=== PATIENT | male | born 1965 | race Hispanic/Latino ===

== ENCOUNTER 2017-08-02 15:18 | Emergency (ER) | payer MEDICAID ==
[2017-08-02 15:25] VITALS: BP 147/87
[2017-08-02] MEDS ORDERED: TORADOL IM ONE (16:37)
[2017-08-02] MEDS ORDERED: PERCOCET 5/325 PO ONE (16:38)
--- NOTE | 2017-08-02 16:43 | Emergency Department Report ---
ED Back Pain/Injury HPI - General Chief Complaint: Back Pain/Injury Stated Complaint: BACK PAIN Time Seen by Provider: 08/02/17 16:37 Source: patient Limitations: No Limitations - History of Present Illness Initial Comments: 52 yo male with DDD presents with severe back pain after lifting/twisting injury 2 days ago. Sudden onset of pain while lifting 90 pound tree stump. He has severe left lower back pain. Worse with movement. No radiation. NO incontinence. no leg weakness. MD Complaint: back pain, back injury -: Sudden, days(s) (2) Similar Symptoms Previously: Yes Place: home Radiation: none Severity: severe Severity scale (0 -10): 10 Quality: sharp, dull Consistency: constant Improves With: none Worsens With: movement Context: while lifting, turning/twisting, bending - Related Data Previous Rx's Medication Instructions Recorded Last Taken Type Cyclobenzaprine [Flexeril] 10 mg PO TID PRN #20 tablet 08/02/17 Unknown Rx Ibuprofen 800 mg PO QID 4 Days #16 tablet 08/02/17 Unknown Rx oxyCODONE /ACETAMINOPHEN [Percocet 1 tab PO Q4HR #20 tab 08/02/17 Unknown Rx 5/325] Allergies Allergy/AdvReac Type Severity Reaction Status Date / Time No Known Allergies Allergy Unverified 08/02/17 15:22 ED Review of Systems ROS: Stated complaint: BACK PAIN Other details as noted in HPI Comment: All other systems reviewed and negative Constitutional: denies: fever, malaise, weakness Respiratory: denies: cough Cardiovascular: denies: chest pain ED Past Medical Hx - Past Medical History Previous Medical History?: Yes Hx Hypertension: Yes Hx CVA: Yes Hx Diabetes: Yes Additional medical history: DJD - Surgical History Past Surgical History?: No - Social History Smoking Status: Current Every Day Smoker Substance Use Type: None - Medications Home Medications: Home Medications Medication Instructions Recorded Confirmed Last Taken Type Cyclobenzaprine [Flexeril] 10 mg PO TID PRN #20 tablet 08/02/17 Unknown Rx Ibuprofen 800 mg PO QID 4 Days #16 tablet 08/02/17 Unknown Rx oxyCODONE /ACETAMINOPHEN [Percocet 1 tab PO Q4HR #20 tab 08/02/17 Unknown Rx 5/325] ED Physical Exam - General Limitations: No Limitations General appearance: alert, in no apparent distress, other (able to move and transfer without assistance) - Head Head exam: Present: atraumatic, normocephalic - Eye Eye exam: Present: normal appearance - ENT ENT exam: Present: normal exam, mucous membranes moist - Neck Neck exam: Present: normal inspection. Absent: tenderness, meningismus - Respiratory Respiratory exam: Present: normal lung sounds bilaterally. Absent: respiratory distress, wheezes, rales, rhonchi, stridor - Cardiovascular Cardiovascular Exam: Present: regular rate, normal rhythm, normal heart sounds. Absent: bradycardia, tachycardia, systolic murmur, diastolic murmur, rubs, gallop - GI/Abdominal GI/Abdominal exam: Present: soft, normal bowel sounds. Absent: distended, tenderness, guarding, rebound - Rectal Rectal exam: Present: deferred - Extremities Exam Extremities exam: Present: normal inspection - Back Exam Back exam: Present: normal inspection, full ROM, muscle spasm (left lower back) . Absent: tenderness, CVA tenderness (R), CVA tenderness (L) - Neurological Exam Neurological exam: Present: alert, oriented X3, normal gait. Absent: motor sensory deficit - Psychiatric Psychiatric exam: Present: normal affect, normal mood - Skin Skin exam: Present: warm, dry, intact, normal color. Absent: rash ED Course Vital Signs 08/02/17 15:22 Temperature 97.5 F L Pulse Rate 96 H Respiratory 18 Rate Blood Pressure 147/87 O2 Sat by Pulse 98 Oximetry ED Medical Decision Making - Medical Decision Making Lower back strain, acute back injury neurologically intact. prescriptions provided Critical care attestation.: If time is entered above; I have spent that time in minutes in the direct care of this critically ill patient, excluding procedure time. ED Disposition Clinical Impression: Lower back injury, Acute back pain, Degenerative disc disease, lumbar Disposition: DC-01 TO HOME OR SELFCARE Is pt being admited?: No Does the pt Need Aspirin: No Condition: Stable Instructions: Acute Low Back Pain (ED) Prescriptions: Cyclobenzaprine [Flexeril] 10 mg PO TID PRN #20 tablet PRN Reason: Muscle Spasm Ibuprofen 800 mg PO QID 4 Days #16 tablet oxyCODONE /ACETAMINOPHEN [Percocet 5/325] 1 tab PO Q4HR #20 tab Referrals: PRIMARY CARE,MD [Primary Care Provider] - 3-5 Days Time of Disposition: 16:46
== END 2017-08-02 17:02 | disposition home or self-care (01) ==
LOC: ED 15:18
DX: S39.82XA Other specified injuries of lower back, initial encounter (principal); M51.36 Other intervertebral disc degeneration, lumbar region; Z86.73 Personal history of transient ischemic attack (TIA), and cerebral infarction without residual deficits; I10 Essential (primary) hypertension; E11.9 Type 2 diabetes mellitus without complications; F17.200 Nicotine dependence, unspecified, uncomplicated; X50.0XXA Overexertion from strenuous movement or load, initial encounter; Y93.89 Activity, other specified; Y92.89 Other specified places as the place of occurrence of the external cause; Y99.8 Other external cause status
CPT/HCPCS: 96372; 99282; J1885

== ENCOUNTER 2017-09-27 11:43 | Emergency (ER) | payer MEDICAID ==
[2017-09-27 12:06] VITALS: BP 155/104
--- NOTE | 2017-09-27 14:17 | Emergency Department Report ---
ED Back Pain/Injury HPI - General Chief Complaint: Back Pain/Injury Stated Complaint: BACK PAIN Time Seen by Provider: 09/27/17 14:17 Source: patient Limitations: No Limitations - History of Present Illness Initial Comments: This is a 52-year-old male nontoxic, well nourished in appearance, no acute signs of distress presents to the ED with c/o of acute on chronic back pain. Patient stated that he was lifting a heavy lawnmower and follow-up pain. Patient describes pain as aching. At 10. Patient denies any bladder or bowel stability. Patient denies any decreased range of motion or gait. He has a follow-up with [place] [facility] doctor and has a possible surgery coming up. Patient denies any chest pain, shortness of breath, fever, chills, nausea, vomiting, headache or stiff neck. Patient denies any allergies. MD Complaint: back pain Similar Symptoms Previously: Yes Place: work Radiation: none Severity: mild Severity scale (0 -10): 8 Quality: aching Consistency: constant Improves With: immobilization, supine, sitting upright Worsens With: movement, walking Context: while lifting, turning/twisting Associated Symptoms: denies other symptoms. denies: confusion, weakness, chest pain, numbness, difficulty walking, cough, difficulty urinating, diaphoresis, incontinence, fever/chills, constipation, headaches, abdominal pain, loss of appetite, malaise, nausea/vomiting, rash, seizure, shortness of breath, syncope - Related Data Previous Rx's Medication Instructions Recorded Last Taken Type Cyclobenzaprine [Flexeril] 10 mg PO TID PRN #20 tablet 08/02/17 Unknown Rx Ibuprofen 800 mg PO QID 4 Days #16 tablet 08/02/17 Unknown Rx oxyCODONE /ACETAMINOPHEN [Percocet 1 tab PO Q4HR #20 tab 08/02/17 Unknown Rx 5/325] Cyclobenzaprine [Flexeril] 10 mg PO BID PRN #10 tablet 09/27/17 Unknown Rx Ibuprofen [Motrin] 600 mg PO Q8H PRN #30 tablet 09/27/17 Unknown Rx traMADol [Ultram] 50 mg PO Q6HR PRN #12 tablet 09/27/17 Unknown Rx Allergies Allergy/AdvReac Type Severity Reaction Status Date / Time No Known Allergies Allergy Verified 09/27/17 12:04 ED Review of Systems ROS: Stated complaint: BACK PAIN Other details as noted in HPI Constitutional: denies: chills, fever Eyes: denies: eye pain, eye discharge, vision change ENT: denies: ear pain, throat pain Respiratory: denies: cough, shortness of breath, wheezing Cardiovascular: denies: chest pain, palpitations Endocrine: no symptoms reported Gastrointestinal: denies: abdominal pain, nausea, diarrhea Genitourinary: denies: urgency, dysuria Musculoskeletal: back pain. denies: joint swelling, arthralgia Skin: denies: rash, lesions Neurological: denies: headache, weakness, paresthesias Psychiatric: denies: anxiety, depression Hematological/Lymphatic: denies: easy bleeding, easy bruising ED Past Medical Hx - Past Medical History Hx Hypertension: Yes Hx CVA: Yes Hx Diabetes: Yes Additional medical history: DJD - Social History Smoking Status: Current Every Day Smoker Substance Use Type: None - Medications Home Medications: Home Medications Medication Instructions Recorded Confirmed Last Taken Type Cyclobenzaprine [Flexeril] 10 mg PO TID PRN #20 tablet 08/02/17 Unknown Rx Ibuprofen 800 mg PO QID 4 Days #16 tablet 08/02/17 Unknown Rx oxyCODONE /ACETAMINOPHEN [Percocet 1 tab PO Q4HR #20 tab 08/02/17 Unknown Rx 5/325] Cyclobenzaprine [Flexeril] 10 mg PO BID PRN #10 tablet 09/27/17 Unknown Rx Ibuprofen [Motrin] 600 mg PO Q8H PRN #30 tablet 09/27/17 Unknown Rx traMADol [Ultram] 50 mg PO Q6HR PRN #12 tablet 09/27/17 Unknown Rx ED Physical Exam - General Limitations: No Limitations General appearance: alert, in no apparent distress - Head Head exam: Present: atraumatic, normocephalic - Eye Eye exam: Present: normal appearance Pupils: Present: normal accommodation - ENT ENT exam: Present: normal exam, mucous membranes moist - Neck Neck exam: Present: normal inspection, full ROM. Absent: tenderness, meningismus - Respiratory Respiratory exam: Present: normal lung sounds bilaterally. Absent: respiratory distress, wheezes, rales, rhonchi, stridor, chest wall tenderness, accessory muscle use, decreased breath sounds, prolonged expiratory - Cardiovascular Cardiovascular Exam: Present: regular rate, normal rhythm, normal heart sounds. Absent: irregular rhythm, systolic murmur, diastolic murmur, rubs, gallop - GI/Abdominal GI/Abdominal exam: Present: soft, normal bowel sounds - Rectal Rectal exam: Present: deferred - Extremities Exam Extremities exam: Present: normal inspection, full ROM, tenderness, normal capillary refill - Back Exam Back exam: Present: normal inspection, full ROM, paraspinal tenderness (lumbar region). Absent: tenderness, CVA tenderness (R), CVA tenderness (L), muscle spasm, vertebral tenderness, rash noted - Expanded Back Exam Expanded Back exam: Absent: saddle anesthesia Back exam: Negative Straight Leg Raising: Left, Right - Neurological Exam Neurological exam: Present: alert, oriented X3, normal gait - Psychiatric Psychiatric exam: Present: normal affect, normal mood - Skin Skin exam: Present: warm, dry, intact, normal color. Absent: rash ED Course Vital Signs 09/27/17 12:04 Temperature 97.8 F Pulse Rate 99 H Respiratory 16 Rate Blood Pressure 155/104 O2 Sat by Pulse 99 Oximetry - Reevaluation(s) Reevaluation #1: 09/27/17 14:19 Patient is speaking in full sentences with no signs of distress noted. ED Medical Decision Making - Medical Decision Making This is a 52-year-old male that presents with low back strain. Patient stable and was examined by me. There is no signs or symptoms of cauda equina syndrome. No urinary symptoms. Patient received Toradol 30 mg IM and [place] in the ED which stated that symptoms is improving subsided. Mother is next to bed side and stated she will drive the patient home after discharge. Patient is discharged with Flexeril and was referred to Follow-up with a primary care doctor in 3-5 days or if symptoms worsen and continue return to emergency room as soon as possible. At time of discharge, the patient does not seem toxic or ill in appearance. No acute signs of distress noted. Patient agrees to discharge treatment plan of care. No further questions noted by the patient. Critical care attestation.: If time is entered above; I have spent that time in minutes in the direct care of this critically ill patient, excluding procedure time. ED Disposition Clinical Impression: Low back strain Qualifiers: Encounter type: initial encounter Qualified Code(s): S39.012A - Strain of muscle, fascia and tendon of lower back, initial encounter Disposition: DC-01 TO HOME OR SELFCARE Is pt being admited?: No Does the pt Need Aspirin: No Condition: Stable Instructions: Ibuprofen (By mouth), Cyclobenzaprine (By mouth), Low Back Strain (ED) Additional Instructions: Follow-up with your primary care doctor in 3-5 days or if symptoms worsen such as bladder or bowel stability, chest pain, short of breath, numbness or tingling sensation in extremities, headache, dizziness, visual changes, nausea vomiting, or abdominal pain, return back to emergency room as was possible. Take ibuprofen and Flexeril as prescribed. Do not operate heavy machinery while taking Flexeril due to sedation Prescriptions: Cyclobenzaprine [Flexeril] 10 mg PO BID PRN #10 tablet PRN Reason: Muscle Spasm Ibuprofen [Motrin] 600 mg PO Q8H PRN #30 tablet PRN Reason: Pain traMADol [Ultram] 50 mg PO Q6HR PRN #12 tablet PRN Reason: Pain Referrals: GILBERTO DEAN [Other] - 3-5 Days PRIMARY MD ADOLPH [Referring] - 3-5 Days TOYA MURRAY MD [Staff Physician] - 3-5 Days [facility] [Outside] - 3-5 Days [facility] [Outside] - 3-5 Days Forms: Work/School Release Form(ED)
[2017-09-27] MEDS ORDERED: TORADOL IM ONE (14:22)
[2017-09-27] MEDS ORDERED: NORCO 10/325 PO ONE (14:43)
== END 2017-09-27 15:03 | disposition home or self-care (01) ==
LOC: ED 11:43
DX: S39.012A Strain of muscle, fascia and tendon of lower back, initial encounter (principal); I10 Essential (primary) hypertension; E11.9 Type 2 diabetes mellitus without complications; F17.200 Nicotine dependence, unspecified, uncomplicated; Z86.73 Personal history of transient ischemic attack (TIA), and cerebral infarction without residual deficits; X50.9XXA Other and unspecified overexertion or strenuous movements or postures, initial encounter; Y93.89 Activity, other specified; Y92.89 Other specified places as the place of occurrence of the external cause; Y99.8 Other external cause status
CPT/HCPCS: 96372; 99282; J1885

== ENCOUNTER 2017-10-05 14:47 | Outpatient (CLI) | payer MEDICAID ==
--- NOTE | 2017-10-05 16:48 | XRay Report ---
Lumbar spine: Low back pain. AP and lateral views demonstrates anterior traction spurs at all levels most significant from L3 through L5. Posterior spurs are identified at L4-5. There is severe narrowing of the L5-S1 interspace with mild narrowing at L4-5. Vertebral height and alignment are maintained and the bones appear well-mineralized. There is suspicion of bony proliferation involving the right L4-5 apophyseal joint. Impression: 1. Significant L4-L5 degenerative bone and disc changes. 2. Diffuse spondylosis.
--- NOTE | 2017-10-05 16:49 | XRay Report ---
LEFT SHOULDER: Pain. Routine views demonstrate normal bony and soft tissue structures with normal joint alignment of the shoulder. IMPRESSION: Normal study.
== END 2017-10-05 14:48 | disposition home or self-care (01) ==
LOC: SPVIMAG 14:47
PROVIDERS: ATTEND Physical Medicine & Rehabilitation
DX: M48.07 Spinal stenosis, lumbosacral region (principal); M47.896 Other spondylosis, lumbar region; M25.512 Pain in left shoulder
CPT/HCPCS: 72100

== ENCOUNTER 2019-06-21 07:53 | Inpatient (IN) | payer MEDICAID ==
[2019-06-21] MEDS ORDERED: ONDANSETRON 4 MG/2 ML INJ IV ONE (08:16)
[2019-06-21] MEDS ORDERED: MORPHINE 4 MG/1 ML INJ IV ONE (08:16)
--- NOTE | 2019-06-21 08:20 | Emergency Department Report ---
ED Abdominal Pain HPI - General Chief Complaint: Abdominal Pain Stated Complaint: ABD PAIN Time Seen by Provider: 06/21/19 08:15 Source: patient, EMS Mode of arrival: Stretcher Limitations: No Limitations - History of Present Illness MD Complaint: abdominal pain -: Gradual, week(s) Location: diffuse Radiation: none Migration to: no migration Severity: mild Quality: cramping Consistency: constant Improves With: nothing Worsens With: eating Associated Symptoms: nausea. denies: dysuria, hematemesis, hematuria, anorexia, syncope - Related Data Previous Rx's Medication Instructions Recorded Last Taken Type Cyclobenzaprine [Flexeril] 10 mg PO TID PRN #20 tablet 08/02/17 Unknown Rx Ibuprofen 800 mg PO QID 4 Days #16 tablet 08/02/17 Unknown Rx oxyCODONE /ACETAMINOPHEN [Percocet 1 tab PO Q4HR #20 tab 08/02/17 Unknown Rx 5/325] Cyclobenzaprine [Flexeril] 10 mg PO BID PRN #10 tablet 09/27/17 Unknown Rx Ibuprofen [Motrin] 600 mg PO Q8H PRN #30 tablet 09/27/17 Unknown Rx traMADoL [Ultram] 50 mg PO Q6HR PRN #12 tablet 09/27/17 Unknown Rx Allergies Allergy/AdvReac Type Severity Reaction Status Date / Time No Known Allergies Allergy Verified 09/27/17 12:04 ED Review of Systems ROS: Stated complaint: ABD PAIN Other details as noted in HPI Comment: All other systems reviewed and negative ED Past Medical Hx - Past Medical History Hx Hypertension: Yes Hx CVA: Yes Hx Diabetes: Yes Additional medical history: DJD - Social History Smoking Status: Former Smoker Substance Use Type: None - Medications Home Medications: Home Medications Medication Instructions Recorded Confirmed Last Taken Type Cyclobenzaprine [Flexeril] 10 mg PO TID PRN #20 tablet 08/02/17 Unknown Rx Ibuprofen 800 mg PO QID 4 Days #16 tablet 08/02/17 Unknown Rx oxyCODONE /ACETAMINOPHEN [Percocet 1 tab PO Q4HR #20 tab 08/02/17 Unknown Rx 5/325] Cyclobenzaprine [Flexeril] 10 mg PO BID PRN #10 tablet 09/27/17 Unknown Rx Ibuprofen [Motrin] 600 mg PO Q8H PRN #30 tablet 09/27/17 Unknown Rx traMADoL [Ultram] 50 mg PO Q6HR PRN #12 tablet 09/27/17 Unknown Rx ED Physical Exam - General Limitations: No Limitations General appearance: alert, in no apparent distress - Head Head exam: Present: atraumatic, normocephalic - Eye Eye exam: Present: normal appearance, PERRL, EOMI Pupils: Present: normal accommodation - ENT ENT exam: Present: normal exam, mucous membranes moist - Neck Neck exam: Present: normal inspection, full ROM - Respiratory Respiratory exam: Present: decreased breath sounds (to bases left greater than right). Absent: accessory muscle use - Cardiovascular Cardiovascular Exam: Present: regular rate, normal rhythm. Absent: systolic murmur, diastolic murmur, rubs, gallop - GI/Abdominal GI/Abdominal exam: Present: soft, tenderness, normal bowel sounds, other (no Rovsing, no Choi Terry, no tenderness at McBurney's, no cullens sign). Absent: distended, guarding, rebound - Rectal Rectal exam: Present: deferred - Extremities Exam Extremities exam: Present: normal inspection, pedal edema (bilaterally 2+) - Back Exam Back exam: Present: normal inspection - Neurological Exam Neurological exam: Present: alert, oriented X3, CN II-XII intact, normal gait - Psychiatric Psychiatric exam: Present: normal affect, normal mood - Skin Skin exam: Present: warm, dry, intact, normal color. Absent: rash ED Course Vital Signs 06/21/19 06/21/19 08:08 10:35 Temperature 97.7 F Pulse Rate 91 H 99 H Respiratory 18 20 Rate Blood Pressure 187/116 Blood Pressure 160/105 [Right] O2 Sat by Pulse 98 97 Oximetry - Consultations Consultation #1: 06/21/19 10:48 Attempted to consult with Dr. Berg of hospitalist group, delayed due to reported bad hospital receptionist issues. ED Medical Decision Making - Lab Data Result diagrams: 06/21/19 08:21 06/21/19 08:21 - Radiology Data Radiology results: report reviewed (report showed multiple moderate to large left pleural effusion with trace right pleural effusion. Compressive atelectasis at the right lung base. Moderate pericardial effusion. No acute inflammatory process identified in the abdomen), image reviewed Critical care attestation.: If time is entered above; I have spent that time in minutes in the direct care of this critically ill patient, excluding procedure time. ED Disposition Clinical Impression: Pleural effusion, Pericardial effusion Disposition: OP ADMIT IP TO THIS HOSP Is pt being admited?: Yes Does the pt Need Aspirin: No Condition: Stable
[2019-06-21 08:43] LABS: Basophils % (Auto) 0.3 % (0.0-1.8); Eosinophils % (Auto) 0.1 % (0.0-4.3); Hematocrit 34.6 % (35.5-45.6); Hemoglobin 11.7 gm/dl (11.8-15.2); Lymphocytes # (Auto) 0.7 K/mm3 (1.2-5.4); Lymphocytes % (Auto) 6.1 % (13.4-35.0); Mean Corpuscular HGB Conc 34 % (32-34); Mean Corpuscular Volume 81 fl (84-94); Monocytes # (Auto) 0.9 K/mm3 (0.0-0.8); Monocytes % (Auto) 8.5 % (0.0-7.3); Platelet Count 342 K/mm3 (140-440); Red Blood Count 4.26 M/mm3 (3.65-5.03); Red Cell Distribution Width 14.5 % (13.2-15.2)
[2019-06-21] MEDS ORDERED: HYOSCYAMINE SUBL 0.125 MG TAB SL ONE (08:51)
--- NOTE | 2019-06-21 08:56 | XRay Report ---
CHEST 2 VIEWS INDICATION: Shortness of breath, lower extremity edema. COMPARISON: FINDINGS: Support devices: None. Heart: Borderline to mild cardiomegaly is suspected. Lungs/pleura: A moderate left pleural effusion compresses the left lower lobe and lingula. Trace righ t pleural fluid is identified. The right lung is clear. No pneumothorax. Additional findings: None. IMPRESSION: Mild CHF. Signer Name: Fabian Gilliam Jr, MD Signed: 06/21/2019 8:51 AM Workstation Name: [id number]
[2019-06-21 09:08] LABS: Alanine Aminotransferase 14 units/L (7-56); Albumin 2.6 g/dL (3.9-5); BUN/Creatinine Ratio 24; Bilirubin,Direct 0.2 mg/dL (0-0.2); Blood Urea Nitrogen 19 mg/dL (9-20); Calcium 8.7 mg/dL (8.4-10.2); Hemolysis Index 4
--- NOTE | 2019-06-21 09:50 | Cat Scan Report ---
CT ABDOMEN AND PELVIS WITH CONTRAST HISTORY: Abdominal pain for one day COMPARISON: None. TECHNIQUE: Axial CT images were obtained through the abdomen and pelvis after 100 cc of Omnipaque 300 intravenously. Sagittal and coronal reformatted images. All CT scans at this location are performed using CT dose reduction for ALARA by means of automated exposure control. FINDINGS: CT ABDOMEN: Lung Bases: A moderate to large left pleural effusion compresses the left lung base. Trace right pleu ral fluid. No obvious infiltrate. Moderate pericardial effusion is identified measuring up to 1.9 cm in thickness along the right heart border. Liver: No significant abnormality. Biliary: No significant abnormality. Spleen: No significant abnormality. Unenlarged. Pancreas: No significant abnormality. Adrenals: No significant abnormality. Kidneys: No significant abnormality. Lymphatics: No lymphadenopathy. Vasculature: Mild diffuse aortic and iliac calcifications. No stenosis or aneurysm. Bowel/Peritoneum: No evidence for bowel obstruction or focal inflammation. The appendix is unremarkab le. There is trace ascites in the pelvis. CT PELVIS: : The bladder, distal ureters and prostate gland are unremarkable. Osseous Structures: Mild thoracolumbar spondylosis. No fracture or suspicious bony lesion. Additional Findings: None IMPRESSION: Moderate to large left pleural effusion. Trace right pleural effusion. Compressive atelectasis at the left lung base. Moderate pericardial effusion. No acute inflammatory process is identified in the abdomen. Trace ascites. Signer Name: Fabian Gilliam Jr, MD Signed: 06/21/2019 9:45 AM Workstation Name: [id number]
[2019-06-21] MEDS ORDERED: MORPHINE 4 MG/1 ML INJ IV STA (10:06)
[2019-06-21] MEDS ORDERED: FUROSEMIDE 40 MG/4 ML INJ IV ONE (10:06)
--- NOTE | 2019-06-21 12:14 | History and Physical Report ---
History of Present Illness Chief complaint: I am short of breath and my stomach hurts to History of present illness: 53-year-old male with HTN, CVA, DM, DJD, presents to ED for evaluation. Patient states that he has experienced shortness of breath over the past 1 week with slowly progressively worsening symptoms over the past 3 days. Patient was seen and evaluated at outside hospital but left AGAINST MEDICAL ADVICE prior to completion of work-up. Patient also reports abdominal discomfort over the past 3 days. Patient states that abdominal pain is 4-6/10, constant, relieved only with pain medication. Patient also acknowledges orthopnea/PND, dyspnea on exertion, dyspnea at rest, decreased exercise tolerance, leg edema. EMS notified and upon arrival the patient was found to be in distress and transported to [facility]. Patient seen and evaluated in the emergency department. Laboratory and imaging studies reviewed. Patient found to have physical exam findings as well as clinical symptoms consistent with CHF decompensation complicated by cardiogenic effusion on chest x-ray. Patient lying in bed in moderate distress, agitated, patient using accessory muscles to breathe, and appears to be in moderate distress. Patient placed on supplemental oxygen and treated with diuretic therapy with mild improvement in symptoms. Patient admitted to telemetry and initiated on CHF protocol due to increased likelihood of cardiac decompensation. Patient denies fever, chills, chest pain, palpitations, syncope, productive cough, prolonged travel/immobility, unilateral leg swelling, hemoptysis, individual/family history of DVT/PE/bleeding/blood clotting disorders. No prior admission for review. No medication listed at time of admission for reconciliation. Cardiology team consulted in the emergency department. Past History Past Medical History: diabetes, stroke, other (see hpi) Past Surgical History: No surgical history, Other (reviewed) Social history: single. denies: smoking, alcohol abuse, prescription drug abuse Family history: hypertension Medications and Allergies Allergies Allergy/AdvReac Type Severity Reaction Status Date / Time No Known Allergies Allergy Verified 09/27/17 12:04 Home Medications Medication Instructions Recorded Confirmed Last Taken Type Cyclobenzaprine [Flexeril] 10 mg PO TID PRN #20 tablet 08/02/17 Unknown Rx Ibuprofen 800 mg PO QID 4 Days #16 tablet 08/02/17 Unknown Rx oxyCODONE /ACETAMINOPHEN [Percocet 1 tab PO Q4HR #20 tab 08/02/17 Unknown Rx 5/325] Cyclobenzaprine [Flexeril] 10 mg PO BID PRN #10 tablet 09/27/17 Unknown Rx Ibuprofen [Motrin] 600 mg PO Q8H PRN #30 tablet 09/27/17 Unknown Rx traMADoL [Ultram] 50 mg PO Q6HR PRN #12 tablet 09/27/17 Unknown Rx Review of Systems Constitutional: no weight loss, no weight gain, no fever, no chills Ears, nose, mouth and throat: no ear pain, no ear discharge, no tinnitis, no decreased hearing, no nose pain Cardiovascular: orthopnea, shortness of breath, dyspnea on exertion, paroxysmal nocturnal dyspnea, leg edema, decreased exercise tolerance, no chest pain Respiratory: no cough, no cough with sputum, no excessive sputum, no hemoptysis Gastrointestinal: abdominal pain, no nausea, no vomiting, no diarrhea Genitourinary Male: no hematuria, no flank pain, no discharge, no urinary frequency, no urinary hesitancy Rectal: no pain, no incontinence, no bleeding Musculoskeletal: no neck stiffness, no neck pain, no shooting arm pain, no arm numbness/tingling, no low back pain Integumentary: no rash, no pruritis, no redness, no sores, no wounds Neurological: no transient paralysis, no paralysis, no weakness, no parathesias, no tingling, no seizures Psychiatric: anxiety, irritability, no memory loss, no change in sleep habits, no sleep disturbances, no insomnia Endocrine: no cold intolerance, no heat intolerance, no polyphagia, no excessive thirst, no polydipsia Hematologic/Lymphatic: no easy bruising, no easy bleeding, no lymphadenopathy, no lymphedema Allergic/Immunologic: no urticaria, no allergic rhinitis, no anaphylaxis, no angioedema Exam - Constitutional Vitals: Temp Pulse Resp BP Pulse Ox 97.7 F 57 L 20 123/69 100 06/21/19 08:08 06/21/19 12:03 06/21/19 12:03 06/21/19 12:03 06/21/19 12:03 General appearance: Present: mild distress - EENT Eyes: Present: PERRL ENT: hearing intact, clear oral mucosa - Neck Neck: Present: supple, normal ROM - Respiratory Respiratory effort: normal Respiratory: bilateral: diminished, rales - Cardiovascular Heart Sounds: Present: S1 & S2. Absent: rub, click - Extremities Extremities: pulses symmetrical Extremity abnormal: edema Peripheral Pulses: within normal limits - Abdominal General gastrointestinal: Present: soft, non-tender, non-distended, normal bowel sounds Male genitourinary: Present: normal - Integumentary Integumentary: Present: clear, warm, dry - Musculoskeletal Musculoskeletal: gait normal, strength equal bilaterally - Psychiatric Psychiatric: appropriate mood/affect, intact judgment & insight, memory intact, agitated - Neurologic Neurologic: CNII-XII intact, moves all extremities Results - Labs CBC & Chem 7: 06/21/19 08:21 06/21/19 08:21 Labs: Abnormal lab results 06/21/19 06/21/19 06/21/19 Range/Units 08:21 08:21 08:21 WBC 11.2 H (4.5-11.0) K/mm3 Hgb 11.7 L (11.8-15.2) gm/dl Hct 34.6 L (35.5-45.6) % MCV 81 L (84-94) fl MCH 27 L (28-32) pg Lymph % (Auto) 6.1 L (13.4-35.0) % Bertie % (Auto) 8.5 H (0.0-7.3) % Lymph # 0.7 L (1.2-5.4) K/mm3 Bertie # 0.9 H (0.0-0.8) K/mm3 Seg Neutrophils % 85.0 H (40.0-70.0) % Seg Neutrophils # 9.5 H (1.8-7.7) K/mm3 Sodium 131 L (137-145) mmol/L Chloride 95.6 L (98-107) mmol/L Carbon Dioxide 21 L (22-30) mmol/L Glucose 196 H (75-100) mg/dL Alkaline Phosphatase 204 H (35-129) units/L NT-Pro-B Natriuret Pep 4662 H (0-900) pg/mL Albumin 2.6 L (3.9-5) g/dL Assessment and Plan - Patient Problems (1) CHF (congestive heart failure) Status: Acute Qualifiers: Heart failure chronicity: acute Plan to address problem: CHF protocol: Admit to telemetry, diuresis with Lasix, supplemental oxygen, chest x-ray, thyroid panel, magnesium level, BNP, cardiology consulted in ED, echo, strict I/O, daily weight. (2) Pleural effusion Status: Acute Plan to address problem: Chest x-ray, repeat chest x-ray in the a.m., diuresis. Suspect cardiogenic effusion. (3) HTN (hypertension) Status: Acute Qualifiers: Hypertension type: essential hypertension Qualified Code(s): I10 - Essential (primary) hypertension Plan to address problem: Monitor BP every shift, blood pressure control, supportive care. (4) Diabetes Status: Acute Plan to address problem: Consistent carbohydrate diet, sliding scale insulin, Accu-Cheks, hypoglycemia protocol. (5) DVT prophylaxis Status: Acute Plan to address problem: SCD to bilateral lower extremity while in bed, patient ambulatory.
[2019-06-21] MEDS ORDERED: ALBUTEROL 2.5 MG/3 ML NEBU IH PRN (12:16)
[2019-06-21] MEDS ORDERED: ACETAMINOPHEN 325 MG TAB PO PRN (12:16)
[2019-06-21] MEDS ORDERED: ONDANSETRON 4 MG/2 ML INJ IV PRN (12:16)
[2019-06-21 12:53] LABS: Bilirubin,Urine NEG (Negative); Blood,Urine SM (Negative); Color,Urine Yellow (Yellow); Mucus,Urine FEW /HPF; Urobilinogen,Urine < 2.0 mg/dL (<2.0); WBC,Urine < 1.0 /HPF (0.0-6.0)
[2019-06-21 13:06] VITALS: BP 121/73
[2019-06-21 13:16] LABS: Free T4 (Free Thyroxine) 1.69 ng/dL (0.76-1.46)
[2019-06-21] MEDS ORDERED: ACETAMINOPHEN 325 MG TAB ONE (13:41)
[2019-06-21] MEDS ORDERED: FUROSEMIDE 20 MG/2 ML INJ IV SCH (18:00)
--- NOTE | 2019-06-21 20:02 | Event Note ---
Date: 06/21/19 Pt Admitted, but left AMA prior to completion of workup and treatment plan.
== END 2019-06-21 14:30 | disposition left against medical advice (07) | DRG 292 ==
LOC: ED 07:53 → 4A 12:16
PROVIDERS: ADMIT Internal Medicine; ATTEND Internal Medicine
DX: I11.0 Hypertensive heart disease with heart failure (principal); I31.3 Pericardial effusion (noninflammatory); I50.9 Heart failure, unspecified; M19.90 Unspecified osteoarthritis, unspecified site; E11.9 Type 2 diabetes mellitus without complications; Z86.73 Personal history of transient ischemic attack (TIA), and cerebral infarction without residual deficits; Z87.891 Personal history of nicotine dependence
CPT/HCPCS: 36415; 71046; 74177; 80048; 80076; 81001; 83690; 83735; 83880; 84439; 84443; 85025; G0378; J1940; J2270; J2405